=== PATIENT | female | born 1955 | race Caucasian/White ===

== ENCOUNTER 2022-07-12 20:06 | Emergency (ER) | payer SELFPAY ==
[~2022-07-12] VITALS: Ht 170.2 cm; Wt 81.6 kg
--- NOTE | 2022-07-12 21:37 | NUR ---
BIB FAMILY FOR 2 FACIAL LACERATION S/P FELL FROM THE STAIRS WHILE HOLDING PLATES. -LOC OR CHANGES IN MENTAL STATUS. AWAKE AN ALERT X4 BREATHING UNLABORED. TETANUS VACCINE NOT UP TO DATE.
--- NOTE | 2022-07-12 21:50 | NUR ---
LEFT FOR CT
[2022-07-12] MEDS ORDERED: LIDOCAINE HCL/PF 1% 30 ML VIAL TP ONE (22:00)
[2022-07-12] MEDS ORDERED: BACI/NEOM/POLY B OINT PKT 1 UDPKT PACKET TP ONE (22:00)
[2022-07-12] MEDS ORDERED: TDAP [DIPH/PERTUSSIS/TET] 0.5 ML VIAL IM ONE ×2 (22:00→22:06)
[2022-07-12] MEDS ORDERED: BACITRACIN ZINC OINT PACKET 1 EA PACKET TP ONE (22:06)
[2022-07-12] MEDS ORDERED: LIDOCAINE 1% INJ 50 ML MDV IJ ONE (22:06)
--- NOTE | 2022-07-12 22:08 | NUR ---
BACK FROM CT
--- NOTE | 2022-07-12 22:47 | NUR ---
PA AT BEDSIDE FOR LAC REPAIR
--- NOTE | 2022-07-12 23:25 | NUR ---
Patient discharged to home in stable condition. Written and verbal after care instructions given. Patient verbalizes understanding of instruction.
[2022-07-13 00:36] VITALS: BP 127/78
== END 2022-07-12 23:30 | disposition home or self-care (01) ==
LOC: ER 20:08
DX: S01.111A Laceration without foreign body of right eyelid and periocular area, initial encounter (principal); S01.411A Laceration without foreign body of right cheek and temporomandibular area, initial encounter; S80.02XA Contusion of left knee, initial encounter; I10 Essential (primary) hypertension; Z88.6 Allergy status to analgesic agent; Z88.5 Allergy status to narcotic agent; W01.198A Fall on same level from slipping, tripping and stumbling with subsequent striking against other object, initial encounter; Y93.89 Activity, other specified; Y92.89 Other specified places as the place of occurrence of the external cause; Y99.8 Other external cause status
CPT/HCPCS: 99284; 72125; 90471; 90715; 73564; 70450; 70486; 12014; J3490 ×2

== ENCOUNTER 2022-07-19 13:27 | Emergency (ER) | payer SELFPAY ==
[~2022-07-19] VITALS: Ht 170.2 cm; Wt 81.6 kg
--- NOTE | 2022-07-19 13:30 | NUR ---
at bedside for eval
[2022-07-19 13:35] VITALS: BP 140/88
--- NOTE | 2022-07-19 13:45 | NUR ---
Patient discharged to home in stable condition. Written and verbal after care instructions given. Patient verbalizes understanding of instruction.
== END 2022-07-19 13:47 | disposition home or self-care (01) ==
LOC: ER 13:28
DX: Z48.02 Encounter for removal of sutures (principal); S01.81XD Laceration without foreign body of other part of head, subsequent encounter; I10 Essential (primary) hypertension; Z88.8 Allergy status to other drugs, medicaments and biological substances; X58.XXXD Exposure to other specified factors, subsequent encounter